=== PATIENT | female | born 1965 | race Caucasian/White ===

== ENCOUNTER → 2018-10-08 | Day surgery (SDC) | payer MEDICARE ==
[2018-10-07 08:25] VITALS: BMI 27.0
[~2018-10-08] MED LIST: Acetaminophen 500 MG TAB ONE; Iopamidol-M 200 41% 20 ML VIAL ONE
--- NOTE | 2018-10-08 10:45 | CT ---
POST MYELOGRAM LUMBAR SPINE CT: LUMBAR RADICULOPATHY: COMPARISON: None. TECHNIQUE: Post-myelogram lumbar spine CT is performed in the axial plane. Reformatted images are submitted for interpretation. FINDINGS: No retroperitoneal mass, lymphadenopathy, or hematoma. Visualized alimentary canal and solid organs are unremarkable. There are bilateral transpedicular screws at L3, L4, and L5. The screws transverse the anterior aspe ct of the vertebral body bilaterally at L5 no active disease possibly on the right side at L4. Disk prosthesis at L3-L4 and L4-L5. 3.5 m of anterolisthesis of L3 upon L4, 2.8 mm of anterolisthesis of L4 upon L5. Laminectomy at L3-L4, L4-L5. Limited evaluation of the contents of the central spinal canal and neural foramen due to beam attenua tion artifact. T12-L1: Termination of conus medullaris. No significant central canal stenosis or foraminal narrowi ng. L1-L2: No significant central canal stenosis or foraminal narrowing. L2-L3: Vacuum disk phenomenon. End plate sclerosis and subchondral cyst formation, on the basis of degenerative change. Generalized disk bulge, minimal ligamentum flavum thickening, and facet hypertr ophy result in mild to moderate central canal stenosis. Moderate right and moderate to severe left f oraminal narrowing. L3-L4: Posterior laminectomy defect. Disk prosthesis. No high-grade central canal stenosis or high -grade foraminal narrowing. L4-L5: Disk prosthesis. Posterior laminectomy defect. No significant central canal stenosis. Neur al foramen are patent. L5-S1: No significant central canal stenosis. Neural foramen are patent. IMPRESSION: 1. Postsurgical change with lumbar fusion as described above. No high-grade central canal stenosis or high-grade foraminal narrowing. Evaluation is slightly limited by beam-attenuation artifact secon ramy to technique. 2. L2-L3 has mild to moderate central canal stenosis secondary to posterior element hypertrophy and disk material. POS: [facility]
--- NOTE | 2018-10-08 12:29 | RAD ---
FLUOROSCOPIC GUIDED LUMBAR MYELOGRAM: 10/08/2018 HISTORY: Lumbar radiculopathy. Bilateral lower extremity pain. TOTAL FLUOROSCOPY TIME: 0.3 minutes TOTAL DOSE: 27.1 Gy per m2. TECHNIQUE: After informed consent was obtained, the patient was placed on the fluoroscopy table in the prone pos ition. An area was marked overlying the L4 laminectomy defect. The area was meticulously prepped an d draped in the usual sterile fashion. The skin and subcutaneous tissues were infiltrated with buffered 1% Lidocaine for local anesthesia. A 22 gauge spinal needle was advanced into the central spinal canal. The inner stylet was removed wi th return of clear cerebrospinal fluid. Approximately 8 mL of Isovue 240 contrast was instilled into the thecal sac. The inner stylet was re placed, and the needle was removed. A dry, sterile dressing was placed. The patient tolerated the procedure well and without immediate complication. The patient was transpo rted to the CT scan for further imaging. FINDINGS: Brush Trimming Machine Setter supine anterior-posterior and lateral views of the lumbar spine are obtained. No prior studies are available for comparison. There is evidence of right convex scoliosis. There are post surgical changes related to posterior fusion with bipedicular screws and posterior rods transfixing the L3-L4 and L4-L5 levels with intradiskal metallic devices noted in place. There is grade 1 anterolisthesis of L3 on L4. There is suggestion of trace anterolisthesis of L2 on L3 with narrowing of the L2-L3 i ntervertebral disk space. Laminectomy defects are seen at the levels of post surgical change. Vascu lar calcification is seen in the abdominal aorta. A technically successful lumbar myelogram was performed with a puncture at the level of the L4 verteb ral body. Imaging suggests an area of narrowing of the thecal sac, at the L2-L3 level. Please see C T scan for further details following this exam. IMPRESSION: 1. Technically successful lumbar myelogram. 2. Right convex scoliosis with post surgical changes related to posterior fusion of the L4 through S 1 levels. 3. Suggested focal narrowing at the L2-L3 level. Please see CT scan lumbar spine, post myelogram, f or further details. POS: [facility]
== END ==
LOC: RAD 07:19
PROVIDERS: ATTEND Specialist
PROC: B01B1ZZ Fluoroscopy of Spinal Cord using Low Osmolar Contrast (ICD-10-PCS; principal; 2018-10-08)
DX: M96.1 Postlaminectomy syndrome, not elsewhere classified (principal); M48.061 Spinal stenosis, lumbar region without neurogenic claudication; M51.16 Intervertebral disc disorders with radiculopathy, lumbar region; F10.10 Alcohol abuse, uncomplicated; E03.9 Hypothyroidism, unspecified; I10 Essential (primary) hypertension; Z79.1 Long term (current) use of non-steroidal anti-inflammatories (NSAID); Z79.899 Other long term (current) drug therapy; Z98.1 Arthrodesis status
CPT/HCPCS: 62304; 72132; Q9966

== ENCOUNTER 2018-11-03 05:33 | Observation (INO) | payer MEDICARE ==
[2018-11-03] MEDS ORDERED: Naloxone HCl 2 MG, Admixture Fee 1 EACH in Sodium Chloride 0.9% 500 ML IV SCH (06:00)
[2018-11-03] MEDS ORDERED: Ondansetron ODT 4 MG TAB PO PRN (07:40)
[2018-11-03 07:56] LABS: Free T4 (Free Thyroxine) 0.55 ng/dL (0.70-1.48); Thyroid Stimulating Hormone 16.7155 uIU/mL (0.35-4.94)
[2018-11-03 08:13] LABS: #Basophils 0.1 thou/uL (0.0-0.2); #Eosinphils 0.2 thou/uL (0.0-0.7); #Lymphocytes 1.3 thou/uL (1.20-3.40); #Monocytes 0.3 thou/uL (0.11-0.59); %Basophils 0.9 % (0.0-1.0); %Eosinophils 4.1 % (0.0-10.0); %Lymphocytes 22.1 % (21.0-51.0); %Monocytes 5.5 % (0.0-10.0); %Neutrophils 67.4 % (42.0-75.0); Hemoglobin 12.1 g/dL (12.0-16.0); Mean Corpuscular Hemoglobin 31.5 pg (27.0-31.0); Mean Corpuscular Volume 95.5 fL (78.0-98.0); Mean Platelet Volume 7.1 fL (7.4-10.4); Platelet Count 244 thou/uL (130-400); RBC Distribution Width 12.4 % (11.5-14.5); Red Blood Cell (RBC) Count 3.85 mill/uL (4.20-5.40); White Blood Cell (WBC) Count 5.9 thou/uL (4.8-10.8)
[2018-11-03 08:31] LABS: Anion Gap 9 mmol/L (10-20); BUN (Urea Nitrogen) 15 mg/dL (9.8-20.1); Calc. Creatinine Clearance 0 mL/min (70-130); Calcium 8.1 mg/dL (7.8-10.44); Carbon Dioxide 21 mmol/L (22-29); Chloride 115 mmol/L (98-107); Estimated GFR-MDRD Greater than 90; Glucose 93 mg/dL (70-105); Potassium 4.4 mmol/L (3.5-5.1); Sodium 141 mmol/L (136-145)
--- NOTE | 2018-11-03 09:19 | HP ---
PRIMARY CARE PROVIDER: Minh Watson MD HISTORY OF PRESENT ILLNESS: The patient referred to the [facility] by [facility] Emergency Department after transferred from [facility] [place] ER report states the patient was admitted for suicidal ideation. EMS reported she had had taken extra Seroquel, had 5 beers, and some Tylenol No. 4. She did say she wanted to go to [facility], but did not have an immediate plan or trying to kill herself. She related anxiety and stress over possibly losing her housing. She had gone into her room and locked the door. Nidhi called EMS. She denies any suicidal ideations to me. She said that she has been a little depressed. She admitted to taking an extra Seroquel, two Tylenol No. 4, drinking an alcohol. PAST MEDICAL HISTORY: Pertinent for depression with previous suicide attempt, hypertension, attention deficit disorder, and hypothyroidism. CURRENT MEDICATIONS: 1. Gabapentin 800 mg 2 times a day. 2. Mobic 7.5 mg a day. 3. Calcium. 4. Amlodipine 10 mg a day. 5. Prozac 40 mg a day. 6. Lisinopril 40 mg a day. ALLERGIES: NONE. PAST SURGICAL HISTORY: Lumbar spine surgery x5, breast reduction, hysterectomy without oophorectomy. FAMILY HISTORY: Mother had hypertension and diabetes mellitus. SOCIAL HISTORY: , her daughter is next of kin for decision making, full code status. She states she smokes a half a pack a day. She drinks 2 to 3 beers a day. It is interesting to note that she states that she took an extra Seroquel. Seroquel was not listed on her medicine list. REVIEW OF SYSTEMS: GENERAL: No headaches, dizziness, fainting, fever, or chills. EYES: No double vision, blurred vision, or flashing light. EARS, NOSE, AND THROAT: No ear pain or drainage. No nasal bleeding. No trouble swallowing. CARDIAC: No chest pain, orthopnea, or paroxysmal nocturnal dyspnea. RESPIRATIONS: No cough, wheezing, or asthma. GASTROINTESTINAL: No nausea, vomiting, diarrhea, or constipation. GENITOURINARY: No hematuria or dysuria. MUSCULOSKELETAL: No pain or swelling in her arms or legs. NEUROLOGIC: No strokes, seizures, or focal weakness. PSYCHIATRIC: A long history of anxiety, depression, history of suicide attempt. Apparently, presented in the emergency room with some decreased mentation. SKIN: Bruising on her legs from doing yard work with a weed eater. HEME/LYMPH: No tender or swollen lymph nodes in the axilla, inguinal, cervical area. PHYSICAL EXAMINATION: GENERAL: The patient is alert, oriented, cooperative, pleasant lady. VITAL SIGNS: Blood pressure 110/70, pulse 60, respirations 16, and O2 saturation 95% on room air. HEENT: Examination of her head, eyes, ears, nose, and throat reveal pupils are equal, round, and reactive to light. Extraocular movements are intact. Sclerae are white. Tympanic membranes are clear. Oral mucous membranes are wet. Dental hygiene is good. NECK: Supple without jugular venous distention, adenopathy, or thyromegaly. CHEST: Clear to auscultation and percussion. HEART: Had a regular rate and rhythm. First and second heart sounds are clear. There are no appreciated murmurs or gallops. ABDOMEN: Soft. Bowel sounds are normal. There is no hepatosplenomegaly. No masses. No rebound. No bruits. EXTREMITIES: Reveal no cyanosis, clubbing, or edema. PULSES: Carotid, radial, femoral, and dorsalis pedis pulses intact. SKIN: Warm and dry without bruises or rash. She does have some minor scratches on her ankles consistent with a history of using a weed eater. HEME/LYMPH: No tender or swollen lymph nodes in the axilla, inguinal, cervical area. NEUROLOGIC: Cranial nerves 2 through 12 are intact. Deep tendon reflexes are symmetric. DIAGNOSTIC DATA: EKG: Sinus rhythm, no acute ST-T abnormality, etc., reviewed by me. Chest x-ray, not done. LABORATORY DATA: CBC; white count 7.3, hemoglobin 11.4, and platelet count 225, 000. TSH was 22. Comprehensive metabolic profile was unremarkable except for chloride of slightly high at 111, CO2 is slightly low at 21. AST 35. Toxicology reveals positive opiates, tricyclics, amphetamines. Amphetamine level initially was 27, which is within the normal range, followup was 18. Alcohol was 47. ADMITTING DIAGNOSES: 1. Drug overdose, intentional. 2. Suicide ideation. 3. Hypertension. 4. Chronic anxiety, depression with recent stress. 5. Attention deficit disorder. PLAN: The patient is on a Narcan drip since before 12 mn Narcan drip will be stopped. The patient will be monitored, moved to medical. T3 and T4 had been ordered. After I have determined that she is medically stable from her multiple drug usage, we will call [facility]. I suspect she will be discharged later today. Job ID: [id number] [facility]
--- NOTE | 2018-11-03 14:43 | PDOC.EVN ---
Event Note - Event Note Event Note: alert, oriented, cooperative- [facility] consult
[2018-11-03 15:21] VITALS: BMI 20.7
[2018-11-03 19:56] VITALS: BP 171/90; TEMP 98.1
--- NOTE | 2018-11-04 07:10 | DIS ---
DATE OF ADMISSION: 11/03/2018 DATE OF DISCHARGE: 11/03/2018 PRIMARY CARE PROVIDER: Minh Watson MD FINAL DIAGNOSES: Multiple medication overdose, suicide ideation, hypertension, depression. DISCHARGE MEDICINES: Same as her home medicines. 1. Lisinopril 40 mg a day. 2. Fluoxetine 40 mg a day. 3. Amlodipine 10 mg a day. 4. Meloxicam 15 mg a day. 5. Gabapentin 800 mg tablet b.i.d. ALLERGIES: NO KNOWN ALLERGIES. DIET: As tolerated. PENDING AT TIME OF DISCHARGE: Nothing. CODE STATUS: Full. HOSPITAL COURSE: The patient admitted through the emergency room after transfer from [place]. She had taken extra of multiple pills. She had been put on IV Narcan drip. She had bone removed approximately 9 hours when I first saw her. She was alert, oriented, cooperative. It was discontinued. Her CBC was unremarkable. She had a mild hyperchloremia. Free T4 was low at 0.55, T3 was normal at 1.83. TSH was high at 16.7. Tylenol level was done, which was not elevated. Her mental status remained normal. She denied desiring to kill herself. [facility] was consulted. They are in agreement that she can be discharged with a safety plan. [facility] is working up a safety plan with the patient's neighbor plus followup with an MR in her local community. There were no consultations except [facility]. There were no procedures. She needs to follow up with her PCP about her low thyroid status and to follow with [facility] and her industrial safety and health technician per [facility]. Job ID: [id number]
--- NOTE | 2018-11-08 22:05 | EKG ---
Test Reason : Blood Pressure : / mmHG Vent. Rate : 054 BPM Atrial Rate : 054 BPM P-R Int : 160 ms QRS Dur : 096 ms QT Int : 492 ms P-R-T Axes : 034 044 041 degrees QTc Int : 466 ms Sinus bradycardia Otherwise normal ECG Confirmed by CASEY JENNINGS ([id number]), features editor VILMA HAYDEN ([id number]) on 11/08/2018 10:04:39 PM Referred By: Confirmed By:CASEY JENNINGS
== END 2018-11-03 20:55 | disposition home or self-care (01) ==
LOC: ERS 05:33 → ERHOLD 07:41 → INTOOBSV 07:41 → T4-A 15:08
PROVIDERS: ADMIT Internal Medicine; ATTEND Internal Medicine
DX: T43.592A Poisoning by other antipsychotics and neuroleptics, intentional self-harm, initial encounter (principal); T39.1X2A Poisoning by 4-Aminophenol derivatives, intentional self-harm, initial encounter; F32.9 Major depressive disorder, single episode, unspecified; F41.9 Anxiety disorder, unspecified; I10 Essential (primary) hypertension; F98.8 Other specified behavioral and emotional disorders with onset usually occurring in childhood and adolescence; E03.9 Hypothyroidism, unspecified; F17.210 Nicotine dependence, cigarettes, uncomplicated; Z90.710 Acquired absence of both cervix and uterus; Z79.1 Long term (current) use of non-steroidal anti-inflammatories (NSAID); Z79.899 Other long term (current) drug therapy; Z98.890 Other specified postprocedural states
CPT/HCPCS: 80048; 80307; 84439; 84443; 84481; 85025; 93005; 96365; 99285; 99406; G0378 ×2; 36415; J2310; J7050

== ENCOUNTER 2019-04-27 07:12 | Inpatient (IN) | payer MEDICARE ==
[2019-04-24 09:12] VITALS: BMI 19.8
[2019-04-27] MEDS ORDERED: Scopolamine 1.5 mg/72 hour Patch ONE (08:10)
[2019-04-27] MEDS ORDERED: Midazolam HCl 2 mg/2 ml Vial ONE (08:10)
[2019-04-27 08:33] LABS: Hemoglobin 12.3 g/dL (12.0-16.0); Mean Corpuscular HGB CONC 33.4 g/dL (32.0-36.0); Mean Corpuscular Hemoglobin 30.9 pg (27.0-31.0); Mean Corpuscular Volume 92.4 fL (78.0-98.0); Mean Platelet Volume 7.1 fL (7.4-10.4); Platelet Count 350 thou/uL (130-400); RBC Distribution Width 12.1 % (11.5-14.5); Red Blood Cell (RBC) Count 3.99 mill/uL (4.20-5.40); White Blood Cell (WBC) Count 9.4 thou/uL (4.8-10.8)
[2019-04-27 08:45] LABS: Anion Gap 14 mmol/L (10-20); BUN (Urea Nitrogen) 16 mg/dL (9.8-20.1); Calc. Creatinine Clearance 58 mL/min (70-130); Calcium 9.6 mg/dL (7.8-10.44); Carbon Dioxide 22 mmol/L (22-29); Chloride 106 mmol/L (98-107); Estimated GFR-MDRD 75; Glucose 98 mg/dL (70-105); Potassium 3.7 mmol/L (3.5-5.1); Sodium 138 mmol/L (136-145)
[2019-04-27] MEDS ORDERED: Sodium Chloride 0.9% 10 ML ONE (09:09)
[2019-04-27] MEDS ORDERED: Fentanyl 100 MCG/2 ML VIAL ONE ×4 (09:24→15:14)
[2019-04-27] MEDS ORDERED: Promethazine HCl 25 MG/ML VIAL SLOW IVP PRN (10:02)
[2019-04-27] MEDS ORDERED: Promethazine HCl 25 MG/ML VIAL IM PRN ×2 (10:02→11:15)
[2019-04-27] MEDS ORDERED: Ondansetron HCl/PF 4 MG/2 ML Vial IVP PRN (10:02)
[2019-04-27] MEDS ORDERED: HYDROmorphone 2 MG/ML VIAL SLOW IVP PRN (10:02)
[2019-04-27] MEDS ORDERED: HYDROcodone/Acetaminophen 10/325 mg Tablet PO PRN (11:15)
[2019-04-27] MEDS ORDERED: diphenhydrAMINE 25 MG CAP PO PRN (11:15)
[2019-04-27] MEDS ORDERED: traMADol HCl 50 MG TAB PO PRN ×2 (11:15)
[2019-04-27] MEDS ORDERED: Promethazine HCl 12.5 MG SUPP PR PRN (11:15)
[2019-04-27] MEDS ORDERED: Milk Of Magnesia 30 ML UDCUP PO PRN (11:15)
[2019-04-27] MEDS ORDERED: Promethazine 25 MG TAB PO PRN (11:15)
[2019-04-27] MEDS ORDERED: Mag-Al 1200 mg/1200 mg/30 ML UDCUP PO PRN (11:15)
[2019-04-27] MEDS ORDERED: tiZANidine HCl 4 MG TAB PO PRN (11:15)
[2019-04-27] MEDS ORDERED: diphenhydrAMINE 50 MG/ML VIAL IVP PRN (11:15)
[2019-04-27] MEDS ORDERED: Morphine 4 MG/ML VIAL SLOW IVP PRN (11:15)
[2019-04-27] MEDS ORDERED: Ondansetron PF 4 MG/2 ML Vial IM PRN (11:23)
[2019-04-27] MEDS ORDERED: Morphine 2 MG/ML SYRINGE SLOW IVP PRN (11:30)
--- NOTE | 2019-04-27 12:06 | OP ---
DATE OF PROCEDURE: 04/27/2019 MEDICAL CUSTOMER SERVICE REPRESENTATIVE: Alan Denson PA-C PROCEDURES PERFORMED: Exploration of spinal fusion L3 to L5, removal of hardware L3 to L5, L2-L3 laminectomy, posterolateral arthrodesis L2-L3, demineralized bone matrix, local morselized autograft, pedicle screw instrumentation, L2-L3. DESCRIPTION OF PROCEDURE: The patient was brought to the operating room and intubated. She was rolled in the prone position on gel-filled chest rolls. The previous incision was reopened and the L2 level was also exposed. We identified the previous hardware from L3 to L5, removed the nuts and rods, explored the spinal fusion. It seemed to be solid between L3 and L5. We next performed a modest decompression L2-L3 and then placed pedicle screws at L2 bilaterally using lateral fluoroscopic guidance. The la was secured between L2 and L3, connected by nuts, which were final tightened. The wound was then extensively irrigated and MAC hemostasis was secured. A combination of demineralized bone matrix and local morselized autograft was laid over the lamina and posterolateral surfaces for the purpose of arthrodesis. Vancomycin powder was applied and the wound was then closed in anatomic layers. Job ID: [id number]
[2019-04-27] MEDS ORDERED: PROPOFOL 200 MG/20 ML VIAL ONE (16:46)
[2019-04-27] MEDS ORDERED: ePHEDrine 50 MG/ML VIAL ONE (16:46)
[2019-04-27] MEDS ORDERED: PHENYLEPHRINE-NS 100 MCG/ML 10 ML SYRINGE ONE (16:46)
[2019-04-27] MEDS ORDERED: Glycopyrrolate 0.2 MG/ML 5 ML SYRINGE ONE (16:46)
[2019-04-27] MEDS ORDERED: Dexamethasone 20 MG/5 ML VIAL ONE (16:46)
[2019-04-27] MEDS ORDERED: Ondansetron PF 4 MG/2 ML Vial ONE (16:46)
[2019-04-27] MEDS ORDERED: Ketorolac Tromethamine 30 MG/ML VIAL ONE (16:46)
[2019-04-27] MEDS ORDERED: Rocuronium Bromide 10 MG/ML (10ML VIAL) ONE (16:46)
[2019-04-27] MEDS ORDERED: Lidocaine 1% PF 5 ML VIAL ONE (16:46)
[2019-04-27] MEDS: Sodium Chloride 0.9% 1,000 ML IV SCH (18:09)
[2019-04-27] MEDS: CEFAZOLIN 2 GM in Premix Bag 1 BAG IVPB SCH (18:11)
[2019-04-27] MEDS: HYDROcodone/Acetaminophen 10/325 mg Tablet PO PRN (18:34)
[2019-04-27] MEDS ORDERED: Cepastat Lozenges 1 LOZ PO PRN (19:50)
[2019-04-27] MEDS: Gabapentin 400 MG CAP PO SCH (20:10)
[2019-04-27] MEDS: Calcium Carbonate + Vit D 1 TAB PO SCH (20:10)
[2019-04-28] MEDS: CEFAZOLIN 2 GM in Premix Bag 1 BAG IVPB SCH ×3 (01:18→16:21)
[2019-04-28] MEDS: Sodium Chloride 0.9% 1,000 ML IV SCH ×2 (01:20→15:25)
[2019-04-28] MEDS ORDERED: Levothyroxine Sodium 25 MCG TAB PO SCH (06:00)
[2019-04-28] MEDS ORDERED: Levothyroxine Sodium 112 MCG TAB PO SCH (06:00)
[2019-04-28] MEDS: Calcium Carbonate + Vit D 1 TAB PO SCH (08:32)
[2019-04-28] MEDS: Gabapentin 400 MG CAP PO SCH (08:32)
[2019-04-28] MEDS ORDERED: FLUoxetine HCl 20 MG CAP PO SCH (09:00)
[2019-04-28] MEDS ORDERED: Amlodipine 10 MG TAB PO SCH (09:00)
[2019-04-28] MEDS ORDERED: Lisinopril 20 MG TAB PO SCH (09:00)
--- NOTE | 2019-04-28 12:04 | DIS ---
DATE OF ADMISSION: 04/27/2019 DATE OF DISCHARGE: 04/28/2019 The patient is a 53-year-old female, who underwent removal of hardware from L3-L5 and extension of her lumbar fusion at L2-L3. Following the surgery, she was transitioned to the Med/Surg floor, where her pain has been well-controlled with p.o. medications, she has been tolerating a regular diet, and she has been voiding appropriately. She has been ambulating easily back forth to the bathroom. We will plan to dismiss the patient home. I have discussed home care precautions. We will follow up with the patient in 2 weeks. Job ID: [id number]
[2019-04-28 15:19] VITALS: BP 100/67; TEMP 97.8
[2019-04-28] MEDS: HYDROcodone/Acetaminophen 10/325 mg Tablet PO PRN (16:35)
--- NOTE | 2019-04-29 16:39 | EKG ---
Test Reason : PREOP Blood Pressure : / mmHG Vent. Rate : 072 BPM Atrial Rate : 072 BPM P-R Int : 152 ms QRS Dur : 098 ms QT Int : 438 ms P-R-T Axes : 034 055 040 degrees QTc Int : 479 ms Normal sinus rhythm Normal ECG When compared with ECG of 03-NOV-2018 06:12, T wave amplitude has increased in Anterior leads Confirmed by DR. Lor THORPE ([id number]) on 04/29/2019 4:39:32 PM Referred By: JANNETTE Confirmed By:DR. Lor THORPE
== END 2019-04-28 17:50 | disposition home or self-care (01) | DRG 460 ==
LOC: SURG A 07:12 → SURG B 15:31
PROVIDERS: ADMIT Neurological Surgery; ATTEND Neurological Surgery
PROC: 0SG0071 Fusion of Lumbar Vertebral Joint with Autologous Tissue Substitute, Posterior Approach, Posterior Column, Open Approach (ICD-10-PCS; principal; 2019-04-27)
PROC: 0QP004Z Removal of Internal Fixation Device from Lumbar Vertebra, Open Approach (ICD-10-PCS; 2019-04-27)
DX: M47.816 Spondylosis without myelopathy or radiculopathy, lumbar region (principal); I10 Essential (primary) hypertension; E03.9 Hypothyroidism, unspecified; M19.90 Unspecified osteoarthritis, unspecified site; F17.210 Nicotine dependence, cigarettes, uncomplicated; F41.9 Anxiety disorder, unspecified; F32.9 Major depressive disorder, single episode, unspecified; F90.0 Attention-deficit hyperactivity disorder, predominantly inattentive type; Z90.710 Acquired absence of both cervix and uterus; Z79.899 Other long term (current) drug therapy
CPT/HCPCS: 76000; 80048; 85027; 93005; 93010; C1713; C1768; J0690; J1100; J1885; J2001; J2250; J2405; J2704; J3010; J3370; J3490

== ENCOUNTER 2019-05-20 15:40 | Outpatient (CLI) | payer MEDICARE, MEDICAID ==
--- NOTE | 2019-05-20 16:18 | RAD ---
LUMBAR SPINE: 05/20/19 Two views. HISTORY: Surgery follow-up. FINDINGS/IMPRESSION: Pedicle screws and rods transfix L2, L3, L4 and L5 levels. Interbody disc implants are noted at L3-4 and L4-5. There is mild anterolisthesis at both L3-4 and L4-5 on the lateral view. Postoperative stap les are seen posteriorly. POS: [facility]
== END 2019-05-20 15:41 | disposition home or self-care (01) ==
LOC: TBSIIMAG 15:40
PROVIDERS: ATTEND Neurological Surgery
DX: M43.16 Spondylolisthesis, lumbar region (principal); Z98.890 Other specified postprocedural states
CPT/HCPCS: 72100

== ENCOUNTER 2019-12-23 07:01 | Day surgery (SDC) | payer MEDICARE, MEDICAID ==
[2019-12-22 14:01] VITALS: BMI 19.8
[2019-12-23 07:49] VITALS: TEMP 97.2
[2019-12-23 08:13] VITALS: BP 162/107
--- NOTE | 2019-12-23 09:55 | CT ---
CT lumbar spine postmyelogram HISTORY: Back pain and bilateral lower extremity pain. History of prior low back surgery COMPARISON: 10/08/2018 FINDINGS: Scattered vascular calcifications are seen in the abdominal aorta and involving the iliac arteries. T here are oval-shaped areas of increased density seen within the bowel likely due to ingested medication. A few colonic diverticula are seen. Postoperative changes lumbar spine are noted with evidence of revision of the postsurgical changes co mpared to prior exam. There are now bipedicular screws with posterior rods transfixing the L2-3 level. Previously seen bipedicular screws in the L4 and L5 vertebral bodies are again noted, but the previously noted posterior rods transfixing the L3-4 and L4-5 levels have been removed. Intradiscal prostheses are again seen at the L3-4 and L4-5 levels. There has been interval development of grade 1 anterolisthesis of L3 on L4 measuring 9 mm, and the intradiscal prosthesis is now located slightly more anteriorly compared to prior exam. On the current examination, there is a fracture involving the anterior superior endplate of the L4 vertebral body with slight height loss anteriorly. Artifact from hardware at this level limits evaluation, but there is now uncovering of the left-sided pedicula r screw due to the fracture.. Laminectomy defects are again seen at the L3-4 and L4-5 levels with right laminotomy defect at L5. Th ere is a lucency seen at the junction of the left pedicle and inferior articulating facet of the L5 vertebral body also seen on the prior exam which may represent prior fracture as the margins do appea r more corticated. T12-L1: Conus medullaris terminates at this level. No disc bulge or disc herniation is present. L1-2: No significant central canal or neural foraminal narrowing is seen. L2-3: Loss of intervertebral disc height is again noted with endplate degenerative changes at this le sagar. There is a mild disc osteophyte complex present which results in slight effacement of the ventral aspect of the thecal sac. Mild bilateral neural foraminal narrowing is present. The degree of neural foraminal narrowing at this level does appear improved compared to the prior exam. The degree of central canal narrowing also appears improved compared to the prior exam. L3-4: As noted above, there has been interval development of grade 1 anterolisthesis at this level wi th fracture of the superior endplate of the L4 vertebral body predominantly anteriorly. There is soft tissue density posterior to thecal sac most likely compatible with scarring at the level of the laminectomy defect. However, there is also soft tissue density seen lateral to the thecal sac in the region of the left neural foramen. This is unable to be further evaluated on this examination. Th is could be related to scar tissue and/or recurrent disc herniation. Hemorrhage from endplate compression fracture is a possibility but thought less likely. The nerve root is unable to be discern ed from the area of soft tissue density in the region of the left neural foramen and lateral to the thecal sac on the left. There is a small amount of soft tissue density at the inferior aspect of the right neural foramen which also could be related to disc material or scarring. This does result in moderate narrowing of the right neural foramen. L4-5: Laminectomy defect is seen posteriorly. There is no mass effect on the thecal sac. There is str eak artifact from the metallic hardware which limits evaluation of each neural foramen. However, due to osteophyte formation, there is at least mild and possibly moderate left-sided neural foraminal narrowing. Extensive streak artifact on the right limits evaluation of the right neural foramen. L5-S1: Prominent facet hypertrophic changes are identified. Central spinal canal and neural foramina demonstrate no significant narrowing. IMPRESSION: 1. Interval revision of postsurgical changes with bipedicular screws and posterior rods now transfixi ng the L2-3 level. Bipedicular screws are again seen at the L3-4 and L4-5 levels, the posterior rods are no longer seen. 2. Interval development of grade 1 anterolisthesis of L3 on L4 measuring 9 mm with a compression frac ture involving the superior endplate of the L4 vertebral body resulting in uncovering of the distal portion of the pedicular screws predominantly on the left. The intradiscal prosthesis is also slightl y displaced anteriorly likely to the anterolisthesis. 3. Soft tissue density in the region of the left neural foramen and lateral to the thecal sac at L3-4 level. This could be related to scar tissue or combination of disc material and scar tissue. Hemorrhage would be difficult to entirely exclude given fracture this level, but this is thought less likely but does remain a possibility. Nerve root on the left at this level is unable to be delineated. Small amount of soft tissue density is seen in the inferior aspect of the right neural fo ramen which also could be related to disc material and/or scarring. 4. Central canal narrowing at the L2-3 level has improved.
--- NOTE | 2019-12-23 10:04 | RAD ---
PROCEDURE: XR Myelogram Lumbar Spine PROVIDED CLINICAL HISTORY: Lumbar radiculopathy COMPARISON: 10/08/2018 TECHNIQUE: After informed consent was obtained, the patient was placed on the fluoroscopic table in the prone po sition. An area overlying the L4 laminotomy defect was marked. The area was meticulously prepped and draped in usual sterile fashion. The skin and subcutaneous tissues were infiltrated with buffered 1% lidocaine for local anesthesia. A 22-gauge spinal needle was advanced into the central canal. Inner stylette was removed with a return of clear cerebral spinal fluid. Approximately 8 mL of Isovue-M 200 contrast was instilled into the thecal sac. The inner stylette was replaced, and the needle was removed. Dry sterile dressing was placed after hemostasis was achieved with direct pressure. The patient tolerated the procedure well and without immediate complication. The patient was transpor uday to CT scan for further imaging. FINDINGS: Tool And Die Manager image demonstrates revision of postsurgical changes. There are now bipedicular screws and poste rior rods transfixing the L2-3 level. The bipedicular screws in the L4 and L5 to bodies are again seen, but the previously seen interconnecting la has been removed. Intradiscal prostheses at the L3- 4 and L4-5 levels is again present. There has been interval development of grade 1 anterolisthesis of L3 on L4 measuring 9 to 10 mm. There is height loss of the anterior aspect of the L4 vertebral bod y and the intradiscal prosthesis overlies the more anterior superior aspect of the vertebral body and is also mild displaced anteriorly in relation to the L4 vertebral body likely related to the ante rolisthesis at this level. Laminectomy defects are again seen posteriorly at level of postoperative change. Left convex curvature of the lumbar spine is present. Fluoroscopy: Time-0.4 minutes Dose 36.5 mcg meter squared. IMPRESSION: 1. Technically successful lumbar myelogram. Please see CT report for further details. 2. Interval revision of post surgical changes as described above. There has also been interval develo pment of grade 1 anterolisthesis of L3 on L4 with a compression fracture now involving the anterior superior endplate of the L4 vertebral body. Intradiscal prosthesis at this level is also displaced an teriorly with respect to the anterior margin of the L4 vertebral body. This is better described on CT the lumbar spine postmyelogram, and please see that report and imaging for further details.
[2019-12-23] MEDS ORDERED: Iopamidol-M 200 41% 20 ML VIAL ONE (11:28)
== END 2019-12-23 10:10 | disposition home or self-care (01) ==
LOC: RAD 07:01
PROVIDERS: ATTEND Neurological Surgery
PROC: B02B1ZZ Computerized Tomography (CT Scan) of Spinal Cord using Low Osmolar Contrast (ICD-10-PCS; principal; 2019-12-23)
DX: M54.16 Radiculopathy, lumbar region (principal); I10 Essential (primary) hypertension; F90.9 Attention-deficit hyperactivity disorder, unspecified type; F41.9 Anxiety disorder, unspecified; F32.9 Major depressive disorder, single episode, unspecified; F17.210 Nicotine dependence, cigarettes, uncomplicated; D64.9 Anemia, unspecified; Z79.899 Other long term (current) drug therapy
CPT/HCPCS: 62304; 72132; Q9966

== ENCOUNTER 2020-01-08 06:32 | Outpatient (CLI) | payer MEDICARE, MEDICAID, OTHER ==
[2020-01-08 14:02] LABS: Hemoglobin 11.1 g/dL (12.0-16.0); Mean Corpuscular HGB CONC 31.4 g/dL (32.0-36.0); Mean Corpuscular Hemoglobin 25.3 pg (27.0-31.0); Mean Corpuscular Volume 80.8 fL (78.0-98.0); Platelet Count 378 thou/uL (130-400); RBC Distribution Width 15.2 % (11.5-14.5); Red Blood Cell (RBC) Count 4.37 mill/uL (4.20-5.40); White Blood Cell (WBC) Count 7.2 thou/uL (4.8-10.8)
[2020-01-08 14:22] LABS: Anion Gap 13 mmol/L (10-20); BUN (Urea Nitrogen) 15 mg/dL (9.8-20.1); Calc. Creatinine Clearance 0 mL/min (70-130); Calcium 9.2 mg/dL (7.8-10.44); Carbon Dioxide 25 mmol/L (22-29); Chloride 106 mmol/L (98-107); Estimated GFR-MDRD 75; Glucose 90 mg/dL (70-105); Potassium 4.4 mmol/L (3.5-5.1); Sodium 140 mmol/L (136-145)
[2020-01-09 17:20] LABS: SARS-CoV-2 MS2 Positive; SARS-CoV-2 N Gene Negative; SARS-CoV-2 S Gene Negative; SARS-CoV-2 orf1ab Negative
== END 2020-01-08 06:33 | disposition home or self-care (01) ==
LOC: LABBT 06:32
PROVIDERS: ATTEND Neurological Surgery
DX: Z01.818 Encounter for other preprocedural examination (principal); Z11.59 Encounter for screening for other viral diseases; M43.16 Spondylolisthesis, lumbar region
CPT/HCPCS: 80048; 85027; 93005; U0003; 87635; 93010

== ENCOUNTER 2020-01-08 10:00 | Inpatient (IN) | payer MEDICARE, MEDICAID, OTHER ==
[2020-01-08 11:11] VITALS: BMI 19.8
[2020-01-13] MEDS ORDERED: Fentanyl 100 MCG/2 ML VIAL ONE ×3 (06:44→09:55)
[2020-01-13] MEDS ORDERED: SUGAMMADEX SODIUM 200 MG/2 ML VIAL ONE (06:44)
[2020-01-13] MEDS ORDERED: PHENYLEPHRINE-NS 100 MCG/ML 10 ML SYRINGE ONE ×2 (08:11→11:12)
[2020-01-13] MEDS ORDERED: EPHEDRINE 25 MG/5 ML SYRINGE ONE ×3 (08:11→11:12)
[2020-01-13] MEDS ORDERED: Phenylephrine 10 MG/ML VIAL ONE (08:11)
[2020-01-13] MEDS ORDERED: Ketorolac Tromethamine 30 MG/ML VIAL IVP PRN (09:03)
[2020-01-13] MEDS ORDERED: Promethazine HCl 25 MG/ML VIAL SLOW IVP PRN (09:03)
[2020-01-13] MEDS ORDERED: Ondansetron HCl/PF 4 MG/2 ML Vial IVP PRN (09:03)
[2020-01-13] MEDS ORDERED: HYDROmorphone 2 MG/ML VIAL SLOW IVP PRN (09:03)
[2020-01-13] MEDS ORDERED: Meperidine HCl/PF 25 MG/ML VIAL SLOW IVP PRN (09:03)
[2020-01-13] MEDS ORDERED: Promethazine HCl 25 MG/ML VIAL IM PRN ×2 (09:03→11:52)
[2020-01-13] MEDS ORDERED: hydrALAZINE 20 MG/ML VIAL ONE (09:28)
--- NOTE | 2020-01-13 09:41 | OP ---
DATE OF PROCEDURE: 01/13/2020 CAR SCRUBBER: Carrol Roldan PA-C PROCEDURES PERFORMED: Exploration of spinal fusion, L2 through L5; removal of hardware, L2 through L5; posterolateral arthrodesis, L2 through L5; pedicle screw instrumentation; BMP, cancellous bone chips, L2 through L5. DESCRIPTION OF PROCEDURE: The patient was brought to the operating room and intubated. She was rolled in a prone position on gel-filled chest rolls. The previous incision was reopened and L2 through L5 were identified. Previous nuts and rods from L2-L3 were removed. We then removed the screws at L4-L5 and replaced them with new screws of similar length and wider diameter. We explored the spinal fusion at L3-L4 and it was clearly not solid. We next placed a la from L2 through L5 connected by nuts, which were final tightened. We attempted to obtain some distraction and reduction at L3-L4. All nuts were final tightened. The wound was then extensively irrigated and MAC hemostasis was secured. Posterolateral surfaces were prepared for the purpose of arthrodesis and a combination of BMP on Gelfoam and cancellous bone chips were laid in the lateral recesses bilaterally from L2 through L5 for the purpose of arthrodesis. MAC hemostasis was secured. Vancomycin powder was applied and the wound was closed in anatomic layers. Job ID: [id number]
[2020-01-13] MEDS ORDERED: Dexamethasone 20 MG/5 ML VIAL ONE (11:12)
[2020-01-13] MEDS ORDERED: Rocuronium Bromide 10 MG/ML (10ML VIAL) ONE (11:12)
[2020-01-13] MEDS ORDERED: PROPOFOL 200 MG/20 ML VIAL ONE (11:12)
[2020-01-13] MEDS ORDERED: Glycopyrrolate 0.2 MG/ML 5 ML SYRINGE ONE (11:12)
[2020-01-13] MEDS ORDERED: Ketorolac Tromethamine 30 MG/ML VIAL ONE (11:12)
[2020-01-13] MEDS ORDERED: Lidocaine 1% (PF) 30 ML VIAL ONE (11:12)
[2020-01-13] MEDS ORDERED: Ondansetron PF 4 MG/2 ML Vial ONE (11:12)
[2020-01-13] MEDS ORDERED: HYDROcodone/Acetaminophen 10/325 mg Tablet PO PRN (11:52)
[2020-01-13] MEDS ORDERED: Promethazine 25 MG TAB PO PRN (11:52)
[2020-01-13] MEDS ORDERED: Morphine 4 MG/ML VIAL SLOW IVP PRN (11:52)
[2020-01-13] MEDS ORDERED: diphenhydrAMINE 25 MG CAP PO PRN (11:52)
[2020-01-13] MEDS ORDERED: diphenhydrAMINE 50 MG/ML VIAL IVP PRN (11:52)
[2020-01-13] MEDS ORDERED: traMADol HCl 50 MG TAB PO PRN ×2 (11:52)
[2020-01-13] MEDS ORDERED: Promethazine HCl 12.5 MG SUPP PR PRN (11:52)
[2020-01-13] MEDS ORDERED: Morphine 2 MG/ML SYRINGE SLOW IVP PRN (11:52)
[2020-01-13] MEDS ORDERED: Mag-Al 1200 mg/1200 mg/30 ML UDCUP PO PRN (11:52)
[2020-01-13] MEDS ORDERED: Milk Of Magnesia 30 ML UDCUP PO PRN (11:52)
[2020-01-13] MEDS ORDERED: Bisacodyl 10 MG SUPP PR PRN (11:52)
[2020-01-13] MEDS ORDERED: Acetaminophen/Codeine 30-300mg Tablet PO PRN (11:57)
[2020-01-13] MEDS: Sodium Chloride 0.9% 1,000 ML IV SCH (15:46)
[2020-01-13] MEDS: CEFAZOLIN 2 GM in Premix Bag 1 BAG IVPB SCH ×2 (15:46→22:42)
[2020-01-13] MEDS: Acetaminophen/Codeine 30-300mg Tablet PO PRN ×2 (16:38→21:07)
[2020-01-13] MEDS: FLUoxetine HCl 20 MG CAP PO SCH (20:24)
[2020-01-13] MEDS: Calcium Carbonate 600 MG + Vit D TAB PO SCH (20:24)
[2020-01-13] MEDS: Gabapentin 400 MG CAP PO SCH (20:24)
[2020-01-13] MEDS: hydrALAZINE 20 MG/ML VIAL SLOW IVP PRN (20:24)
[2020-01-14] MEDS: Ondansetron PF 4 MG/2 ML Vial IM PRN ×2 (00:12→08:30)
[2020-01-14] MEDS: hydrALAZINE 20 MG/ML VIAL SLOW IVP PRN ×4 (00:12→19:40)
[2020-01-14] MEDS: Sodium Chloride 0.9% 1,000 ML IV SCH ×2 (01:44→15:57)
[2020-01-14] MEDS: HYDROcodone/Acetaminophen 10/325 mg Tablet PO PRN ×2 (03:22→19:44)
[2020-01-14] MEDS: Levothyroxine Sodium 75 MCG TAB PO SCH (05:55)
--- NOTE | 2020-01-14 07:04 | PRG ---
DATE OF SERVICE: 01/14/2020 SUBJECTIVE: The patient is postoperative day #1, status post revision of lumbar fusion. She has been transitioned to the Med/Surg floor, where her pain has been well-controlled with p.o. medications, she is tolerating a regular diet, and she is voiding appropriately on a bedpan. She has not mobilized much because they are waiting on her TLSO brace. She reports she is still having some dysesthesias in both of her legs, but she is moving them easily. On exam this morning, she is awake, alert, in no acute distress. She has free active range of motion of all extremities. No focal motor weakness. Sensation is intact to light touch. No incisional issues. PLAN: We will continue to mobilize appropriately once a TLSO brace has been fitted. I have advised nursing that they can start to get her up and back and forth to the bathroom even before the brace arrives. We will also give her a dose of p.o. Tylenol x1 as she has complained of a headache earlier. She has been evaluated by rehab and there are plans for transition to inpatient rehab at discharge at some point in the near future. Continue to work with PT and OT and anticipate to rehab in the next few days. Job ID: [id number] MTDD
[2020-01-14] MEDS ORDERED: Acetaminophen 325 MG TAB PO SCH (07:30)
[2020-01-14] MEDS: Gabapentin 400 MG CAP PO SCH ×2 (08:25→19:39)
[2020-01-14] MEDS: Lisinopril 20 MG TAB PO SCH (08:25)
[2020-01-14] MEDS: Calcium Carbonate 600 MG + Vit D TAB PO SCH ×2 (08:26→19:39)
[2020-01-14] MEDS ORDERED: CHONDROITIN COMPLEX PO SCH (09:00)
[2020-01-14] MEDS ORDERED: BIOTIN PO SCH (09:00)
[2020-01-14] MEDS ORDERED: GLUCOSAMINE PO SCH (09:00)
[2020-01-14] MEDS: Acetaminophen/Codeine 30-300mg Tablet PO PRN (15:51)
--- NOTE | 2020-01-14 16:29 | PRG ---
DATE OF SERVICE: HISTORY OF PRESENT ILLNESS: Ms. Rose seems reasonably comfortable with regard to pain. She complains of a diffuse all over body numbness and ringing in her ears. She is awaiting a brace so she can be mobilized. IMPRESSION AND PLAN: The patient seems to have some diffuse symptoms that are not referable to the procedures done on lumbar spine. We will hold off on any further investigation. I anticipate these will resolve. We will mobilize and anticipate will need rehab. Job ID: [id number]
[2020-01-14] MEDS: tiZANidine HCl 4 MG TAB PO PRN (19:39)
[2020-01-14] MEDS: FLUoxetine HCl 20 MG CAP PO SCH (19:39)
[2020-01-15] MEDS: Sodium Chloride 0.9% 1,000 ML IV SCH ×2 (03:23→10:22)
[2020-01-15] MEDS: tiZANidine HCl 4 MG TAB PO PRN (04:22)
[2020-01-15] MEDS: hydrALAZINE 20 MG/ML VIAL SLOW IVP PRN ×2 (04:22→15:55)
[2020-01-15] MEDS: HYDROcodone/Acetaminophen 10/325 mg Tablet PO PRN ×2 (04:25→22:04)
[2020-01-15] MEDS: Levothyroxine Sodium 75 MCG TAB PO SCH (05:29)
[2020-01-15] MEDS: Calcium Carbonate 600 MG + Vit D TAB PO SCH ×2 (09:34→22:00)
[2020-01-15] MEDS: Lisinopril 20 MG TAB PO SCH (09:34)
[2020-01-15] MEDS: Gabapentin 400 MG CAP PO SCH ×2 (09:34→22:00)
--- NOTE | 2020-01-15 09:40 | PRG ---
DATE OF SERVICE: 01/15/2020 SUBJECTIVE: The patient is now postoperative day #2, status post revision of her lumbar fusion. She has gotten her TLSO brace, and she is starting to mobilize slowly with assistance of PT and OT. The brace appears to be fitting appropriately. She has had some mild incisional drainage, but no other worrisome concerns. She continues to have some numbness in her legs, but again this is unchanged from prior to surgery. She has no changes in her motor strength. OBJECTIVE: GENERAL: This morning, she is awake, alert, sitting up comfortably. In no acute distress. VITAL SIGNS: Stable and she has been afebrile. NEUROLOGIC: Her legs are strong on exam in the bed. Her sensation is intact to light touch, although she does admit to some dysesthesias. She has no bowel or bladder issues. PLAN: We will continue mobilizing while inpatient. Planning on discharge to rehab at some point in the near future. However, we are currently waiting on insurance authorization. I feel that she is ready at any point in time once this is received. Job ID: [id number]
[2020-01-15] MEDS: Acetaminophen/Codeine 30-300mg Tablet PO PRN (14:28)
[2020-01-15] MEDS: FLUoxetine HCl 20 MG CAP PO SCH (22:01)
[2020-01-16] MEDS: Levothyroxine Sodium 75 MCG TAB PO SCH (06:37)
[2020-01-16] MEDS: Acetaminophen/Codeine 30-300mg Tablet PO PRN (06:37)
[2020-01-16] MEDS: Sodium Chloride 0.9% 1,000 ML IV SCH (07:22)
[2020-01-16] MEDS: Gabapentin 400 MG CAP PO SCH ×2 (09:48→21:02)
[2020-01-16] MEDS: Calcium Carbonate 600 MG + Vit D TAB PO SCH ×2 (09:48→21:03)
[2020-01-16] MEDS: Lisinopril 20 MG TAB PO SCH (09:49)
[2020-01-16] MEDS: FLUoxetine HCl 20 MG CAP PO SCH (21:02)
[2020-01-16] MEDS: HYDROcodone/Acetaminophen 10/325 mg Tablet PO PRN (21:14)
--- NOTE | 2020-01-17 00:37 | PRG ---
DATE OF SERVICE: 01/16/2020 Ms. Rose is on the 3rd day of her hospital stay after lumbar fusion and reoperation. She Case Management has seen her and submitted paperwork for this purpose. She reports minimal pain as she is only gabrielle-incisional, although she reports paresthesias from essentially the chest down. It is unclear to me that how much of this is chronic and related to preoperative symptoms as she states that most of it was present beforehand slightly as we discussed further. In any case, incision is dry, well approximated, no drainage, it was in a bandage. She has been working with Physical Therapy and using a walker as well without again much significant pain. We will continue to follow along and await further instruction of case management. Job ID: [id number]
[2020-01-17] MEDS: Sodium Chloride 0.9% 1,000 ML IV SCH ×2 (00:53→11:11)
[2020-01-17] MEDS: Levothyroxine Sodium 75 MCG TAB PO SCH (06:13)
--- NOTE | 2020-01-17 10:38 | PRG ---
DATE OF SERVICE: 01/17/2020 Ms. Rose is now on the 5th day of her hospital stay after lumbar reoperation and fusion with Dr. Thompson. Her pain level still continues to be excellently controlled, though the paresthesias to her trunk and legs continued to bother her. We will adjust her gabapentin and see if this helps. According to Case Management, everything has been submitted to [employer], we are just awaiting approval from them. It looks like at its earliest will be tomorrow. The patient continues to work with therapy, is steady but using a walker. Yesterday, she ambulated almost 200 feet with only one stop for rest, though she has continued to improve and progress as we like to see. No additional concerns at this time. Job ID: [id number]
[2020-01-17] MEDS: Lisinopril 20 MG TAB PO SCH (11:26)
[2020-01-17] MEDS: tiZANidine HCl 4 MG TAB PO PRN ×2 (11:26→21:27)
[2020-01-17] MEDS: Calcium Carbonate 600 MG + Vit D TAB PO SCH ×2 (11:27→21:27)
[2020-01-17] MEDS: HYDROcodone/Acetaminophen 10/325 mg Tablet PO PRN ×2 (11:30→21:27)
[2020-01-17] MEDS: Gabapentin 400 MG CAP PO SCH ×3 (12:18→21:27)
[2020-01-17] MEDS: FLUoxetine HCl 20 MG CAP PO SCH (21:27)
[2020-01-18] MEDS: HYDROcodone/Acetaminophen 10/325 mg Tablet PO PRN ×3 (01:39→11:09)
[2020-01-18] MEDS: Sodium Chloride 0.9% 1,000 ML IV SCH ×2 (02:51→13:22)
[2020-01-18] MEDS: tiZANidine HCl 4 MG TAB PO PRN ×2 (03:48→11:10)
[2020-01-18] MEDS: Levothyroxine Sodium 75 MCG TAB PO SCH (05:42)
--- NOTE | 2020-01-18 07:34 | PRG ---
DATE OF SERVICE: 01/18/2020 The patient is now postoperative day #5, status post revision of her lumbar fusion. She continues to mobilize better on the floor with assistance of her walker. She reports her pain is well-controlled with p.o. medications, she is tolerating a regular diet, and voiding appropriately. On exam this morning, she is awake, alert, in no acute distress. She has free active range of motion of all extremities. No focal motor weakness in the bed. The patient is doing quite well postoperatively. We still feel that she would benefit from inpatient rehab and we are currently awaiting on insurance authorization. Job ID: [id number]
[2020-01-18 07:35] VITALS: BP 119/83; TEMP 98.3
[2020-01-18] MEDS: Gabapentin 400 MG CAP PO SCH (08:01)
[2020-01-18] MEDS: Calcium Carbonate 600 MG + Vit D TAB PO SCH (08:01)
[2020-01-18] MEDS: Lisinopril 20 MG TAB PO SCH (08:01)
--- NOTE | 2020-01-18 14:09 | DIS ---
DATE OF ADMISSION: 01/13/2020 DATE OF DISCHARGE: 01/18/2020 The patient is a 54-year-old female, who we evaluated in our office for progressive back and leg pain, who was found to have failure of her lumbar fusion which required revision. Following the surgery, she was transitioned to the Med/Surg floor. Her pain is well controlled with p.o. medications, she was tolerating a regular diet, and she was voiding appropriately. She was fitted with a TLSO brace, which she has been advised to wear for all out of bed activities. She did have some dysesthesias from the lower abdomen down, but this seemed to improve some with time. Her neurologic exam remained stable with good strength throughout her course. Initial plans were to send to inpatient rehabilitation, however, this was ultimately denied by her insurance. The patient did mobilize over the next several days with the assistance of Physical Therapy and we felt she was appropriate for dismissal to home with Home Health. On exam, prior to discharge, the patient was awake, alert, in no acute distress. She had free active range of motion of all extremities. No focal motor weakness. Her incision was clean, dry, and intact. We will plan to dismiss the patient to home. I have discussed home care and precautions and will follow up with her in 2 weeks with x-rays. I check [facility] [employer] Charmaine prior to discharge. Job ID: [id number] MTDD
== END 2020-01-18 13:57 | disposition home health service (06) | DRG 460 ==
LOC: SURG A 01-13 06:22 → SURG B 01-13 11:40
PROVIDERS: ADMIT Neurological Surgery; ATTEND Neurological Surgery
PROC: 0SG1071 Fusion of 2 or more Lumbar Vertebral Joints with Autologous Tissue Substitute, Posterior Approach, Posterior Column, Open Approach (ICD-10-PCS; principal; 2020-01-13)
PROC: 0SP00JZ Removal of Synthetic Substitute from Lumbar Vertebral Joint, Open Approach (ICD-10-PCS; 2020-01-13)
DX: M43.16 Spondylolisthesis, lumbar region (principal); Z11.59 Encounter for screening for other viral diseases; I10 Essential (primary) hypertension; E03.9 Hypothyroidism, unspecified; I25.10 Atherosclerotic heart disease of native coronary artery without angina pectoris; E11.9 Type 2 diabetes mellitus without complications; F17.210 Nicotine dependence, cigarettes, uncomplicated; F41.9 Anxiety disorder, unspecified; Z79.899 Other long term (current) drug therapy; Z79.890 Hormone replacement therapy; Z79.84 Long term (current) use of oral hypoglycemic drugs
CPT/HCPCS: 36416; 76000; J0360; J0690; J1100; J1885; J2001; J2370; J2405; J2704; J3010; J3370; Q0169

== ENCOUNTER 2020-01-24 18:36 | Inpatient (IN) | payer MEDICARE, MEDICAID, OTHER ==
[~2020-01-24 18:36] MED LIST changes: -Acetaminophen 500 MG TAB ONE; -Iopamidol-M 200 41% 20 ML VIAL ONE; +Magnevist 469MG/ML 20 ML VIAL ONE
--- NOTE | 2020-01-24 20:11 | CT ---
CT LUMBAR SPINE WITHOUT CONTRAST: Comparison: 12-23-2019 History: Back surgery, 01-13-2020. Numbness from the diaphragm down, worsening symptoms. FINDINGS: Redemonstration of bilateral transpedicular screws at L2, L3, L4, and L5. No significant perihardware lucency. Stable disc prosthesis at L3-4 and L4-5. Persistent anterolisthesis of L3 upon L4, unchange d and measuring approximately 1 cm. Redemonstration of decompressive laminectomy defect at L3-4 and L 4-5. Appropriate attenuation of the psoas muscles. Visualizes solid organs are grossly unremarkable. There is fluid attenuation involving the posterior midline soft tissues starting at the inferior aspe ct of L1 and extending inferiorly to the L5 level. The largest focus appears to be at approximately t he L3-4 disc space. At this level, this area measures 3.3 x 2.8 cm. Findings may represent post-opera tive hematoma, seroma, or a developing abscess. Limited evaluation of the contents of the central spinal canal and neural foraminal due to technique. T11-12, T12-L1: No high grade central canal stenosis or high grade neural foraminal narrowing. L1-2: Broad based disc bulge abuts the thecal sac. Mild central canal stenosis. Neural foramina are m ildly narrowed. L2-3: Severe loss of disc space height, unchanged. Broad based disc bulge, ligamentum flavum thickeni ng and facet hypertrophy result in mild central canal stenosis. Stable moderate bilateral neural fora hector narrowing. L3-4: Posterior decompressive laminectomy defect. There is extensive abnormal soft tissue attenuation in the expected location of the thecal sac. Technique limits evaluation. There is at least moderate central canal stenosis. Abnormal soft tissue attenuation is similar to the previous examination. Mode rate bilateral neural foraminal narrowing, unchanged. L4-5: Posterior laminectomy defect. Limited evaluation due to extensive beam attenuation artifact. Ab normal soft tissue density in the operative site is noted. Based on the images provided, there does n ot appear to be a high grade central canal stenosis. Stable neural foramina. L5-S1: Stable broad based disc bulge with a right submandibular component. Mass effect upon the trave rsing right S1 nerve root. No significant stenosis of the thecal sac. Mild bilateral foraminal narrow ing. IMPRESSION: 1. Extensive hypodensity in the midline soft tissues which may represent post-operative hematoma or s eroma. Developing abscess cannot be excluded. 2. Limited evaluation of the central spinal canal and neural foramina due to technique as well as trav m attenuation artifact. There appears to be significant central canal stenosis at L3-4. The L3 level is inferior to the reported level numbness. The upper lumbar spine does not demonstrate significant c entral canal stenosis. Neurosurgical consultation is recommended. POS: PPP
--- NOTE | 2020-01-24 22:19 | MRI ---
MRI BRAIN WITH AND WITHOUT CONTRAST: DATE: 01/24/2020 HISTORY: 54-year-old female with numbness of lower portion of body below diaphragm TECHNIQUE: Multiplanar, multisequence MRI of the brain obtained pre and post IV injection of gadolinium based co ntrast agent. FINDINGS: All images are significantly degraded by patient motion. The ventricles are normal in size and configuration. There is no midline shift or any other evidence of mass effect. There is no extra-axial fluid collection. There is no intra-axial signal abnormality, abnormal enhancement, mass, recent hemorrhage, or restricted diffusion. IMPRESSION: Normal
--- NOTE | 2020-01-24 22:35 | MRI ---
MRI cervical spine with and without contrast: 01/24/2020 10:12 PM HISTORY: 54-year-old female with hypesthesia (numbness) of lower body below diaphragm, and bilateral lower ext remity weakness. Dr. Balderas reported the cord compression and cord edema by telephone to Dr. Will of the emergency Dep artment at 10:25 PM 01/24/2020 COMPARISON: No prior imaging studies of the cervical spine FINDINGS: All images are degraded by patient motion, some worse than others. The postcontrast sagittal and axia l images are severely degraded and almost nondiagnostic. It is therefore difficult to determine whether or not there is any abnormal enhancement in the lower cervical spine and upper thoracic spine . ACDF hardware at C3-4 and C7-T1. Ankylosis of all vertebral bodies from C3-4 through C7-T1. T1-2: Severe bilateral facet DJD causing grade 1 anterolisthesis of T1 on T2. Very hypointense signal intensity involving the endplates and portions of the bilateral posterior elements, on all pulse sequences, representing sclerosis. There may also be bone marrow edema involving the lateral anterior portions of the spinous processes of T2 and T1, and inferior endplate of T2. Large diffuse disc osteophyte complex significantly indents the ventral aspect of the spinal cord. Somewhat severe ligam entum flavum thickening indents the dorsal aspect of spinal cord. CSF signal is effaced, and there is very severe central spinal canal stenosis and very severe bilateral neural foraminal stenosis at t his level. There is intramedullary edema. Millimeters superior and inferior to the compression, there is cord expansion representing swelling. There is no syringohydromyelia. Moderate central spinal canal stenosis at C2-3 and C3-4. Varying degrees of lower grade neural forami nal stenosis at various levels. IMPRESSION: 1. High-grade cord compression with cord swelling and edema at T1-2, due to combination of what is pr obably a large broad-based disc-osteophyte complex and significant ligamentum flavum thickening, plus grade 1 anterolisthesis of T1 and T2 due to severe bilateral facet arthrosis, all resulting in v alexi severe central spinal canal stenosis and severe bilateral neural foraminal stenosis. 2. Status post anterior cervical discectomy and fusion with successful ankylosis at all levels from C 3-4 through C7-T1. Residual hardware present.
[2020-01-24] MEDS ORDERED: Dexamethasone 10 MG/ML VIAL ONE (22:37)
[2020-01-24] MEDS ORDERED: Promethazine 25 MG TAB PO PRN (22:44)
[2020-01-24] MEDS ORDERED: diphenhydrAMINE 25 MG CAP PO PRN (22:44)
[2020-01-24] MEDS ORDERED: Ondansetron PF 4 MG/2 ML Vial IVP PRN (22:44)
[2020-01-24] MEDS ORDERED: Acetaminophen/Codeine 30-300mg Tablet PO PRN (22:44)
[2020-01-24] MEDS ORDERED: traMADol HCl 50 MG TAB PO PRN ×2 (22:44)
[2020-01-24] MEDS ORDERED: Acetaminophen 325 MG TAB PO PRN (22:44)
[2020-01-24] MEDS ORDERED: Promethazine HCl 25 MG/ML VIAL IM PRN (22:44)
[2020-01-24] MEDS ORDERED: Milk Of Magnesia 30 ML UDCUP PO PRN (22:44)
[2020-01-24] MEDS ORDERED: Mag-Al 1200 mg/1200 mg/30 ML UDCUP PO PRN (22:44)
--- NOTE | 2020-01-24 22:44 | MRI ---
MRI thoracic spine with and without contrast: 01/24/2020 10:28 PM HISTORY: 54-year-old female with lower extremity weakness and hypesthesia (numbness) of lower body below diaph ragm. COMPARISON: None FINDINGS: Significant cord compression at T1-2 due to large broad-based disc-osteophyte complex, thickened liga mentum flavum, and grade 1 anterolisthesis of T1 and T2 due to high-grade bilateral facet DJD, all causing severe central spinal canal stenosis and severe bilateral neural foraminal stenosis. Cord yoan ma and swelling at that level. Multilevel mild, moderate, and moderately severe degenerative disc disease throughout the thoracic sp ine, with disc-osteophyte complexes, some broad-based and some focal, throughout all levels, abutting and slightly indenting the ventral surface of the spinal cord at all levels from T4-5 throug h T10-11. At T8-9, there is a moderate sized focal central disc herniation or disc-osteophyte complex which ruben ecially indents the spinal cord, causing moderate central spinal canal stenosis at that level. Postcontrast images are significantly degraded by patient motion, such that it is difficult to evalua te for abnormal enhancement. Bone marrow edema at the inferior endplate of T2 and involving anterior portions of spinous processes of T1 and T2. No bone marrow edema at all levels inferior to T 2-3. Multilevel bilateral neural foraminal stenosis of varying degrees, ranging from mild to somewhat severe throughout thoracic spine. No syringohydromyelia. Conus medullaris terminates at uppe r L1. No high-grade compression fracture. Mild lateral curvature. IMPRESSION: 1. High-grade cord compression at T1-2 due to a combination of large broad-based disc-osteophyte endp late complex, ligamentum flavum thickening, and grade 1 spondylolisthesis due to severe bilateral facet arthrosis, all causing very severe central spinal canal stenosis and severe bilateral neural fo raminal stenosis. This causes cord edema and cord swelling at that level. 2. High-grade thoracic spondylosis, with multilevel high-grade degenerative disc disease. 3. Central cord impingement at T8-9 due to moderate sized central focal disc extrusion or disc-ossifi ed complex
[2020-01-24] MEDS ORDERED: hydrALAZINE 20 MG/ML VIAL SLOW IVP PRN (22:53)
--- NOTE | 2020-01-24 22:53 | RAD ---
RADIOGRAPH CHEST 1 VIEW: DATE: 01/24/2020 HISTORY: 54-year-old female with numbness of body below diaphragm FINDINGS: There are no airspace densities, pulmonary edema, pneumothorax, or cardiomegaly. The lateral costophr enic angles are sharp. IMPRESSION: No acute cardiopulmonary findings.
[2020-01-24] MEDS ORDERED: Labetalol HCl 100 MG/20 ML VIAL SLOW IVP PRN (22:54)
[2020-01-24] MEDS ORDERED: Morphine 4 MG/ML VIAL ONE (23:13)
[2020-01-24 23:22] LABS: #Basophils 0.1 thou/uL (0.0-0.2); #Eosinphils 0.4 thou/uL (0.0-0.7); #Lymphocytes 1.5 thou/uL (1.20-3.40); #Monocytes 0.5 thou/uL (0.11-0.59); #Neutrophils 3.9 thou/uL (1.40-6.50); %Basophils 1.2 % (0.0-1.0); %Eosinophils 5.7 % (0.0-10.0); %Lymphocytes 23.6 % (21.0-51.0); %Monocytes 8.3 % (0.0-10.0); %Neutrophils 61.3 % (42.0-75.0); Hemoglobin 10.3 g/dL (12.0-16.0); Mean Corpuscular HGB CONC 32.4 g/dL (32.0-36.0); Mean Corpuscular Hemoglobin 25.7 pg (27.0-31.0); Mean Corpuscular Volume 79.5 fL (78.0-98.0); Mean Platelet Volume 7.2 fL (7.4-10.4); Platelet Count 422 thou/uL (130-400); RBC Distribution Width 15.5 % (11.5-14.5); Red Blood Cell (RBC) Count 4.02 mill/uL (4.20-5.40); White Blood Cell (WBC) Count 6.4 thou/uL (4.8-10.8)
--- NOTE | 2020-01-24 23:24 | CT ---
CT CERVICAL SPINE NONCONTRAST: DATE: 01/24/2020 10:51 PM HISTORY: 54-year-old female with cord compression at upper thoracic spine causing lower extremity weakness and numbness of lower body. Further evaluation of nature of lesion at upper T-spine. COMPARISON: None FINDINGS: ACDF hardware at C3 and C4. The left C3 screw is broken, and the posterior fragment is displaced post eriorly within the bone. Interbody bone graft at C3-4. ACDF hardware at C7 and T1. Interbody bone plug at C7-T1. Successful ankylosis of all vertebral bodies from C3-4 through C7-T1. Ankylosis of bilateral C7-T1 facet joints. Partial ankylosis of bilateral C4-5 and C5-6 facet joints. Vertebral body heights are maintained. Lucencies from previously removed screws at C5 and C6. Severe bilateral facet arthrosis, with joint space irregularity, sclerosis, and possibly erosions, at T1-2. This causes grade 1 anterolisthesis of T1 on T2. Severe sclerosis of the endplates at T1-2. The sclerosis involves the upper two thirds of the T2 vertebral body. There is a broad-based central, bilateral paracentral, and bilateral lateral partially calcified disc herniation at T1-2 which protrudes into the anterior portion of the spinal canal. Partially calcified ligamentum flavum thickening protrudes into the posterior aspect of spinal canal. Together, these factors, with the grade 1 spondylolisthesis, results in severe central spinal canal stenosis and severe bilateral neural foraminal stenosis, at this level. IMPRESSION: 1) severe central spinal canal stenosis (causing high-grade cord compression and cord edema as demons trated on the MRI) and severe bilateral neural foraminal stenosis, due to a combination of broad-based partially calcified disc herniation, partially calcified thickened ligamentum flavum, and grade 1 spondylolisthesis (which is due to severe bilateral facet arthrosis), at T1-2. 2) ankylosis of all vertebral bodies from C3 through T1 due to old anterior cervical discectomy and f usion. 3) residual ACDF hardware at C3-4 and C7-T1.
[2020-01-24 23:28] LABS: PTT 32.9 sec (22.9-36.1); Prothrombin Time 13.1 sec (12.0-14.7)
--- NOTE | 2020-01-24 23:35 | CT ---
CT thoracic spine noncontrast: DATE: 01/24/2020 10:54 PM HISTORY: 54-year-old female with cord compression at upper thoracic spine causing lower extremity weakness and numbness of lower body. Further evaluation of nature of lesion at upper T-spine. COMPARISON: None FINDINGS: ACDF hardware at C7 and T1. Interbody bone plug at C7-T1. Severe bilateral facet arthrosis, with joint space irregularity, and sclerosis, at T1-2. This causes grade 1 anterolisthesis of T1 on T2. Severe sclerosis of the endplates at T1-2. The sclerosis involves the upper two thirds of the T2 vertebral body. Severe disc space narrowing at T1-2. There is a broad-based central, bilateral paracentral, and bilateral lateral partially calcified disc herniation at T1-2 which protrudes into the anterior portion of the spinal canal. Partially calcified ligamentum flavum thickening protrudes into the posterior aspect of spinal canal. Together, these factors, with the grade 1 spondylolisthesis, results in severe central spinal canal stenosis and severe bilateral neural foraminal stenosis, at this level. Mild levoscoliosis of thoracic spine centered at mid-lower T-spine. Several levels of severe degenera tive disc disease at mid and lower levels. Minimal anterior chronic wedging of T8 and T9. No acute compression fracture. Bilateral pedicle screws and vertical interlocking rods noted L2. Dorsal skin deepthi at lumbar spine . No pleural effusion. At T8-9, there is a moderate sized, partially calcified central disc extrusion which protrudes into t he anterior aspect of the spinal canal, indenting the spinal cord. IMPRESSION: 1) severe central spinal canal stenosis (causing high-grade cord compression and cord edema as demons trated on the MRI) and severe bilateral neural foraminal stenosis, due to a combination of broad-based partially calcified disc herniation, partially calcified thickened ligamentum flavum, and grade 1 spondylolisthesis (which is due to severe bilateral facet arthrosis), at T1-2. 2) central partially calcified disc extrusion at T8-9 impinging on the spinal cord. 3) high-grade thoracic spondylosis consisting of multilevel high-grade degenerative disc disease and mild levoscoliosis.
[2020-01-24 23:46] LABS: ALT (SGPT) 20 U/L (8-55); AST (SGOT) 25 U/L (5-34); Albumin 3.9 g/dL (3.5-5.0); Alkaline Phosphatase 125 U/L (40-110); Anion Gap 12 mmol/L (10-20); BUN (Urea Nitrogen) 14 mg/dL (9.8-20.1); Bilirubin, Total 0.2 mg/dL (0.2-1.2); Calc. Creatinine Clearance 0 mL/min (70-130); Calcium 9.1 mg/dL (7.8-10.44); Carbon Dioxide 25 mmol/L (22-29); Chloride 107 mmol/L (98-107); Estimated GFR-MDRD 86; Globulin 2.8 g/dL (2.4-3.5); Glucose 100 mg/dL (70-105); Potassium 3.9 mmol/L (3.5-5.1); Protein, Total 6.7 g/dL (6.0-8.3); Sodium 140 mmol/L (136-145)
[2020-01-25] MEDS: Dexamethasone 4 mg/ml Vial SLOW IVP SCH ×5 (02:15→23:32)
[2020-01-25] MEDS: Sodium Chloride 0.9% 1,000 ML IV SCH ×2 (02:21→17:38)
[2020-01-25 03:05] VITALS: BMI 19.6
[2020-01-25] MEDS: Morphine 2 MG/ML SYRINGE SLOW IVP PRN ×2 (03:37→09:45)
[2020-01-25] MEDS: Levothyroxine Sodium 75 MCG TAB PO SCH (06:33)
--- NOTE | 2020-01-25 07:40 | HP ---
HISTORY OF PRESENT ILLNESS: The patient is a 54-year-old female known to us for recent revision of her lumbar fusion. The patient initially did well after her surgery and had minimal back pain. However, she continued to have dysesthesias in her leg and progression of these dysesthesias to approximately the mid chest sensation down. She returned home and had several falls and has had difficulty ambulating due to these dysesthesias. She came to the ER for further evaluation of these symptoms. A noncontrast CT of the lumbar spine shows good hardware construct to recent lumbar revision. However, MRI of the cervical and thoracic spine are notable for significant stenosis and cord compression at T1-T2. She had prior cervical surgery with remaining constructs at C3-C4 and C7-T1. T1-T2 compression is due to a combination of spondylolisthesis and calcified herniated disks. She is also noted to have a calcified herniated disk at T8-T9 with moderate indentation of the thecal sac. However, this is much less severe than the lesion at T1-T2. She was admitted for further evaluation and management of these ongoing symptoms and Decadron was started. She received 10 mg IV Decadron in the emergency department, and is currently on 4 to 6. PAST MEDICAL HISTORY: Hypertension, thyroid disease, chronic spinal degenerative disease. PAST SURGICAL HISTORY: Multiple cervical and lumbar surgeries, hysterectomy. SOCIAL HISTORY: The patient is a smoker, approximately half pack per day. She does not drink or use any drugs. REVIEW OF SYSTEMS: Per HPI. ALLERGIES: SHE HAS NO KNOWN DRUG ALLERGIES. PHYSICAL EXAMINATION: VITAL SIGNS: Stable. CONSTITUTIONAL: She is sitting up on the side of her bed, awake, alert, in no acute distress. HEENT: Head, normocephalic and atraumatic. Eyes, PERRLA. Extraocular movements intact. ENT; oral mucosa is pink, intact, and moist. She has normal voice. NECK: Nontender. Active range of motion. CARDIAC: Regular rate and rhythm. PULMONARY: Symmetric chest expansion. No evidence of dyspnea. MUSCULOSKELETAL: Free active range of motion of all extremities. No focal motor weakness is appreciated while she is sitting in the bed. She is somewhat hyperreflexive throughout. NEUROLOGIC: A and O x4. I did not attempt to ambulate the patient at this time. ASSESSMENT AND PLAN: This is a 54-year-old female with progressive dysesthesias to approximately the chest down, and some falls and difficulty ambulating at home, who was found to have severe stenosis at T1-T2 below her prior cervical construct at C7-T1. She has been started on Decadron and we will continue her steroids. I have also made her n.p.o. Dr. Thompson will see her to discuss any surgical options. Job ID: [id number]
[2020-01-25] MEDS: Gabapentin 400 MG CAP PO SCH ×2 (08:03→20:33)
[2020-01-25] MEDS: Lisinopril 20 MG TAB PO SCH (08:04)
--- NOTE | 2020-01-25 08:53 | PRG ---
DATE OF SERVICE: 01/25/2020 SUBJECTIVE: The patient was seen and examined. I agree with Carrol Roldan's evaluation on 01/25/2020. The patient is a 54-year-old woman, well known to us from recent revision of the lumbar fusion with progressive difficulty with numbness and paraparesis of the lower extremities. Ultimately, this became so severe that she required evaluation in the emergency room last night and extensive imaging was performed. This revealed significant thoracic degenerative disease with the most pronounced finding being T1-2, where there is severe central stenosis with T2 signal abnormality. IMPRESSION AND PLAN: The T1-T2 lesion seems to be the cause of the progressive neurologic deficit and will require urgent treatment. We discussed the indication, risks, benefits, and alternatives of the T1-T2 laminectomy . She expressed understanding and wished to proceed. Job ID: [id number]
[2020-01-25] MEDS ORDERED: CEFAZOLIN 2 GM in Premix Bag 1 BAG IVPB SCH (09:30)
[2020-01-25] MEDS ORDERED: PHENYLEPHRINE-NS 100 MCG/ML 10 ML SYRINGE ONE (11:01)
[2020-01-25] MEDS ORDERED: Ondansetron PF 4 MG/2 ML Vial ONE (11:01)
[2020-01-25] MEDS ORDERED: Dexamethasone 20 MG/5 ML VIAL ONE (11:01)
[2020-01-25] MEDS ORDERED: Rocuronium Bromide 10 MG/ML (10ML VIAL) ONE (11:01)
[2020-01-25] MEDS ORDERED: EPHEDRINE 25 MG/5 ML SYRINGE ONE (11:01)
[2020-01-25] MEDS ORDERED: Glycopyrrolate 0.2 MG/ML 5 ML SYRINGE ONE (11:01)
[2020-01-25] MEDS ORDERED: Lidocaine 1% PF 5 ML VIAL ONE (11:01)
[2020-01-25] MEDS ORDERED: Metoprolol Tartrate 5 MG/5 ML VIAL ONE ×2 (11:01→14:03)
[2020-01-25] MEDS ORDERED: PROPOFOL 200 MG/20 ML VIAL ONE (11:01)
[2020-01-25] MEDS ORDERED: Fentanyl 100 MCG/2 ML VIAL ONE ×3 (12:26→14:34)
--- NOTE | 2020-01-25 13:55 | PDOC.FMACP ---
Advance Care Planning - Problem (1) Declining functional status Status: Acute Code(s): R53.81 - OTHER MALAISE (2) HTN (hypertension) Status: Acute Code(s): I10 - ESSENTIAL (PRIMARY) HYPERTENSION (3) Palliative care encounter Status: Acute Code(s): Z51.5 - ENCOUNTER FOR PALLIATIVE CARE - Note Participants: patient, palliative care Summary: Palliative Care was introduced and Advanced Care Planning was discussed, Ms Rose was allowed and opportunity to decline. The diagnosis, prognosis and goals of care were discussed. Appropriate forms and documentation to accomplish the goals of care were discussed. Freddie Lee completed MPOA and directive to physician with patient, as well as DNAR. Documents were notarized as appropriated and placed on Chart, copies for Ms Rose were made and given to her. All questions were answered. Will transition patient to DNAR after surgery as per her expressed wishes. Time Spent (mins): 30
--- NOTE | 2020-01-25 14:00 | OP ---
DATE OF PROCEDURE: 01/25/2020 [employer]LECTRICAL EQUIPMENT ASSEMBLER: Carrol Roldan PA-C PROCEDURE PERFORMED: T1-T2 decompressive laminectomy. DESCRIPTION OF PROCEDURE: The patient was brought to the operating room and intubated. She was rolled in a prone position on gel-filled chest rolls. An incision was made exposing T1 and T2, and the level was confirmed by x-ray. We performed complete T2 and inferior T1 laminectomies, completely decompressing the spinal cord. The wound was then extensively irrigated, MAC hemostasis was secured. Vancomycin powder was applied and the wound was closed in anatomic layers. Job ID: [id number]
[2020-01-25 14:57] LABS: SARS-CoV-2 MS2 Positive; SARS-CoV-2 N Gene Negative; SARS-CoV-2 S Gene Negative; SARS-CoV-2 orf1ab Negative
[2020-01-25] MEDS: Acetaminophen/Codeine 30-300mg Tablet PO PRN ×2 (17:25→20:33)
[2020-01-25] MEDS: FLUoxetine HCl 20 MG/5 ML UDCUP PO SCH (20:33)
[2020-01-25] MEDS: tiZANidine HCl 4 MG TAB PO PRN (20:33)
[2020-01-26] MEDS: Acetaminophen/Codeine 30-300mg Tablet PO PRN ×6 (01:02→22:01)
[2020-01-26] MEDS: Sodium Chloride 0.9% 1,000 ML IV SCH ×2 (01:37→12:05)
[2020-01-26] MEDS: Dexamethasone 4 mg/ml Vial SLOW IVP SCH ×4 (05:55→23:36)
[2020-01-26] MEDS: Levothyroxine Sodium 75 MCG TAB PO SCH (05:55)
--- NOTE | 2020-01-26 06:49 | PRG ---
DATE OF SERVICE: 01/26/2020 SUBJECTIVE: The patient is now postoperative day #1, status post T1-T2 decompressive laminectomy. Following the surgery, she was transitioned back to the Med/Surg floor. Her pain has been well-controlled with p.o. medications. She is tolerating a regular diet, and she is voiding appropriately. She continues to have significant dysesthesia on the upper chest down and this is affecting her ambulation. OBJECTIVE: On exam this morning in the bed, she is awake, alert, in no acute distress. She has free active range of motion of all extremities. She has good strength in the bed. Her incision is clean, dry, and intact. The patient has significant ongoing myelopathy. This will benefit from PT, OT, and need for placement to assisted following discharge. We will continue to mobilize appropriately with the assistance of these services and work toward SNF in the near future. [facility] [id number] [facility]
[2020-01-26] MEDS: Gabapentin 400 MG CAP PO SCH ×2 (08:22→20:31)
[2020-01-26] MEDS: tiZANidine HCl 4 MG TAB PO PRN ×2 (08:22→17:12)
[2020-01-26] MEDS: Lisinopril 20 MG TAB PO SCH (08:23)
--- NOTE | 2020-01-26 12:03 | PDOC.PALFU ---
Palliative Care Follow-up Note Palliative Care was consulted for Advanced Directives. They were addressed and completed. Palliative Care will sign off, if we are able to assist with complex decision making, disease assist, symptom management, coping, family support or Goal of Care please re consult our Team and we will be happy to assist.
--- NOTE | 2020-01-26 12:21 | PRG ---
DATE OF SERVICE: 01/26/2020 Ms. Rose is doing reasonably well. neurologic improvement since the thoracic decompression. We will continue with physical therapy and anticipate she will need rehab. Job ID: [id number]
[2020-01-26] MEDS: FLUoxetine HCl 20 MG/5 ML UDCUP PO SCH (20:30)
[2020-01-27] MEDS: Sodium Chloride 0.9% 1,000 ML IV SCH (05:17)
[2020-01-27] MEDS: Levothyroxine Sodium 75 MCG TAB PO SCH (05:32)
[2020-01-27] MEDS: Acetaminophen/Codeine 30-300mg Tablet PO PRN ×3 (05:32→13:27)
[2020-01-27] MEDS: Dexamethasone 4 mg/ml Vial SLOW IVP SCH ×2 (05:33→12:15)
[2020-01-27 08:06] VITALS: TEMP 97.8
[2020-01-27] MEDS: Gabapentin 400 MG CAP PO SCH (09:50)
[2020-01-27] MEDS: Lisinopril 20 MG TAB PO SCH (09:53)
[2020-01-27] MEDS: tiZANidine HCl 4 MG TAB PO PRN (09:53)
[2020-01-27 11:48] VITALS: BP 167/99
--- NOTE | 2020-01-28 02:34 | DIS ---
DATE OF ADMISSION: 01/25/2020 DATE OF DISCHARGE: 01/27/2020 HOSPITAL COURSE: The patient is a 54-year-old female known to us for recent revision of her lumbar fusion, who went home and during the following week, had progressive numbness and tingling from approximately the upper chest down as well as difficulty with ambulation and frequent falling. She presented back to the Emergency Department and she was found to have significant and severe stenosis at T1-T2 with spinal cord compression. The following morning, she underwent a T1-T2 laminectomy for decompression of this area. Following the surgery, she was transitioned back to the med/surg floor, where her pain has been well controlled with p.o. medications. She has tolerated a regular diet, and she is voiding appropriately. Her sensation is improving and she has been working with Physical Therapy and Occupational therapy. She still has significant myelopathy and she will benefit from group home facility at discharge. She has been accepted to [facility]. We will go ahead and discharge to their facility. I have discussed home care and we will go ahead and taper her Decadron. We will follow up with her in 2 weeks for staple removal. Her lumbar deepthi from prior surgery were removed prior to discharge. Job ID: [id number]
--- NOTE | 2020-01-30 11:01 | EKG ---
Test Reason : Blood Pressure : / mmHG Vent. Rate : 071 BPM Atrial Rate : 071 BPM P-R Int : 152 ms QRS Dur : 100 ms QT Int : 416 ms P-R-T Axes : 019 -01 -02 degrees QTc Int : 452 ms Normal sinus rhythm Possible Left atrial enlargement Inferior infarct , age undetermined Abnormal ECG Confirmed by JANI SALDAÑA DO ([id number]), editor magazine ILIANA MOREJON ([id number]) on 01/30/2020 11:01:34 AM Referred By: Confirmed By:JANI SALDAÑA DO
--- NOTE | 2020-01-30 11:02 | EKG ---
Test Reason : Blood Pressure : / mmHG Vent. Rate : 062 BPM Atrial Rate : 062 BPM P-R Int : 174 ms QRS Dur : 102 ms QT Int : 424 ms P-R-T Axes : 026 011 011 degrees QTc Int : 430 ms Normal sinus rhythm Normal ECG Confirmed by JANI SALDAÑA DO ([id number]), publications editor ILIANA MOREJON ([id number]) on 01/30/2020 11:01:45 AM Referred By: Confirmed By:JANI SALDAÑA DO
== END 2020-01-27 15:00 | disposition swing bed (61) | DRG 519 ==
LOC: ERS 18:36 → SURG A 01-25 02:13
PROVIDERS: ADMIT Neurological Surgery; ATTEND Neurological Surgery
PROC: 00NX0ZZ Release Thoracic Spinal Cord, Open Approach (ICD-10-PCS; principal; 2020-01-25)
DX: M48.04 Spinal stenosis, thoracic region (principal); M51.04 Intervertebral disc disorders with myelopathy, thoracic region; Z11.59 Encounter for screening for other viral diseases; Z51.5 Encounter for palliative care; M43.14 Spondylolisthesis, thoracic region; M51.24 Other intervertebral disc displacement, thoracic region; I10 Essential (primary) hypertension; F32.9 Major depressive disorder, single episode, unspecified; F17.210 Nicotine dependence, cigarettes, uncomplicated; E03.9 Hypothyroidism, unspecified; Z98.1 Arthrodesis status; Z90.710 Acquired absence of both cervix and uterus; Z79.890 Hormone replacement therapy; Z79.899 Other long term (current) drug therapy
CPT/HCPCS: 36415; 70553; 71045; 72125; 72128; 72131; 72156; 72157; 76000; 80053; 85025; 85610; 85730; 87635; 90471; 90732; 93005; 96374; 96375; A9579; G0009; J0360; J0690; J1100; J2001; J2270; J2405; J2704; J3010; J3370; U0003

== ENCOUNTER 2020-02-10 09:49 | Outpatient (CLI) | payer MEDICARE, MEDICAID ==
--- NOTE | 2020-02-10 11:47 | RAD ---
LUMBAR SPINE 2 VIEWS: HISTORY: Lumbar stenosis. COMPARISON: 05/20/2019. FINDINGS: Postoperative changes are noted at L2, L3, L4, and L5. There is some stable S-shaped scoliosis of th e thoracolumbar vertebral column. No significant new process. IMPRESSION: Stable postoperative changes from L2 through L5. Stable scoliosis. POS: [facility]
== END 2020-02-10 09:50 | disposition home or self-care (01) ==
LOC: TBSIIMAG 09:49
PROVIDERS: ATTEND Neurological Surgery
DX: M48.061 Spinal stenosis, lumbar region without neurogenic claudication (principal); M41.9 Scoliosis, unspecified; Z98.890 Other specified postprocedural states
CPT/HCPCS: 72100